=== PATIENT | male | born 1970 | race Hispanic/Latino ===

== ENCOUNTER 2018-06-18 09:38 | Emergency (ER) | payer BC, OTHER ==
[~2018-06-18 09:38] MED LIST: GUAI118S23 PO; IPRA4AER IH; LEVO500T2 PO; LOSA1TAB37 PO; NASONEX NASAL
[2018-06-18 09:57] LABS: BASOPHILS % (AUTO) 0.6 % (0.0-5.0); EOSINOPHILS % (AUTO) 1.2 % (0.0-8.0); HEMATOCRIT 48.8 % (42-54); LYMPHOCYTES % (AUTO) 8.4 % (21.0-51.0); MEAN CORPUSCULAR HEMOGLOBIN 28.8 pg (27.0-33.0); MEAN CORPUSCULAR HGB CONC 33.7 g/dL (32.0-36.0); MEAN CORPUSCULAR VOLUME 85.5 fL (79-99); MONOCYTES % (AUTO) 6.5 % (3.0-13.0); NEUTROPHILS % (AUTO) 83.3 % (40.0-77.0); PLATELET COUNT (AUTO) 239 K/uL (130-400); RED CELL DISTRIBUTION WIDTH 14.1 % (11.0-15.5); WHITE BLOOD COUNT (AUTO) 12.8 K/uL (4.8-10.8)
[2018-06-18 10:02] LABS: POTASSIUM 3.8 mmol/L (3.5-5.1)
[2018-06-18] MEDS ORDERED: SODIUM CHLORIDE 0.9% 1000ML 1,000 ML IV ONE (10:06)
[2018-06-18] MEDS ORDERED: ONDANSETRON HCL 4 MG/2 ML VIAL ONE (10:06)
[2018-06-18] MEDS ORDERED: MORPHINE SULFATE 8 MG/ML VIAL ONE (10:06)
[2018-06-18 10:07] LABS: ALBUMIN 3.5 g/dL (3.5-5.0); BILIRUBIN,TOTAL 0.1 mg/dL (0.2-1.0); TOTAL PROTEIN, SERUM 7.5 g/dL (6.0-8.3)
[2018-06-18 10:20] LABS: APPEARANCE,URINE CLEAR (CLEAR); BILIRUBIN,URINE NEGATIVE (NEGATIVE); COLOR,URINE YELLOW (YELLOW); GLUCOSE, URINE (UA) NEGATIVE (NEGATIVE); KETONES,URINE NEGATIVE (NEGATIVE); LEUKOCYTE ESTERASE ,URINE NEGATIVE (NEGATIVE); NITRATE,URINE NEGATIVE (NEGATIVE); OCCULT BLOOD,URINE MODERATE (NEGATIVE); PH,URINE 6.5 (5.0-8.0); PROTEIN,URINE NEGATIVE (NEGATIVE); UROBILINOGEN,URINE 0.2 mg/dL (0.2-1.0)
[2018-06-18] MEDS ORDERED: IOHEXOL 350 MG/ML 100ML INFUS..BTL IV ONE (10:32)
[2018-06-18 11:07] LABS: RBC,URINE 0-1 /HPF (0-1); WBC,URINE 0-1 /HPF (0-1)
[2018-06-18 11:08] LABS: BACTERIA,URINE Rare /HPF (None Seen); SQUAMOUS EPITHELIAL CELL,UR Rare /HPF (0-2)
== END 2018-06-18 12:32 | disposition home or self-care (01) ==
LOC: EDH 09:38
DX: S16.1XXA Strain of muscle, fascia and tendon at neck level, initial encounter (principal); S09.8XXA Other specified injuries of head, initial encounter; S30.1XXA Contusion of abdominal wall, initial encounter; Z88.1 Allergy status to other antibiotic agents; V49.59XA Passenger injured in collision with other motor vehicles in traffic accident, initial encounter; Y93.89 Activity, other specified; Y92.89 Other specified places as the place of occurrence of the external cause; Y99.8 Other external cause status
CPT/HCPCS: 36415; 70450; 71260; 72125; 74177; 80053; 81001; 83690; 85025; 96374; 96375; 99284; J2270; J2405; J7030; Q9967

== ENCOUNTER 2019-12-24 17:06 | Observation (INO) | payer BC ==
[~2019-12-24] VITALS: Ht 167.6 cm; Wt 118.5 kg
[2019-12-24 17:34] LABS: APPEARANCE,URINE Clear (CLEAR); BILIRUBIN,URINE Negative (NEGATIVE); COLOR,URINE Yellow (YELLOW); GLUCOSE, URINE (UA) Negative (NEGATIVE); KETONES,URINE Negative (NEGATIVE); LEUKOCYTE ESTERASE ,URINE Negative (NEGATIVE); NITRATE,URINE Negative (NEGATIVE); OCCULT BLOOD,URINE Negative (NEGATIVE); PROTEIN,URINE Negative (NEGATIVE)
[2019-12-24 17:39] LABS: AMPHET/METH SCREEN,URINE NEGATIVE (NEGATIVE); BARBITURATE SCREEN, URINE NEGATIVE (NEGATIVE); BENZODIAZEPINES SCREEN,URINE NEGATIVE (NEGATIVE); CANNABINOID SCREEN,URINE NEGATIVE (NEGATIVE); COCAINE SCREEN,URINE NEGATIVE (NEGATIVE); OPIATE SCREEN,URINE NEGATIVE (NEGATIVE); PHENCYCLIDINE SCREEN,URINE NEGATIVE (NEGATIVE)
[2019-12-24 18:00] LABS: BASOPHILS % (AUTO) 0.6 % (0.0-5.0); EOSINOPHILS % (AUTO) 2.5 % (0.0-8.0); HEMATOCRIT 45.5 % (42-54); LYMPHOCYTES % (AUTO) 11.1 % (21.0-51.0); MEAN CORPUSCULAR HEMOGLOBIN 27.8 pg (27.0-33.0); MEAN CORPUSCULAR HGB CONC 33.2 g/dL (32.0-36.0); MEAN CORPUSCULAR VOLUME 83.6 fL (79-99); MONOCYTES % (AUTO) 8.8 % (3.0-13.0); NEUTROPHILS % (AUTO) 76.6 % (40.0-77.0); PLATELET COUNT (AUTO) 264 K/uL (130-400); RED BLOOD CELL COUNT(AUTO) 5.44 MIL/uL (4.50-6.20); RED CELL DISTRIBUTION WIDTH 13.6 % (11.0-15.5)
[2019-12-24 18:22] LABS: POTASSIUM 3.1 mmol/L (3.5-5.1)
[2019-12-24 18:28] LABS: ALBUMIN 3.5 g/dL (3.5-5.0); BILIRUBIN,TOTAL 0.3 mg/dL (0.2-1.0); TOTAL PROTEIN, SERUM 7.3 g/dL (6.0-8.3)
[2019-12-24] MEDS ORDERED: IOHEXOL-350 75 ML VIAL IV ONE (18:28)
[2019-12-24] MEDS ORDERED: FAMOTIDINE/PF 20 MG/2 ML VIAL IV ONE (18:46)
[2019-12-24] MEDS ORDERED: MAGNESIUM HYDROXIDE 30 ML/UDCUP ONE (18:46)
[2019-12-24] MEDS ORDERED: LIDOCAINE HCL 2% VISCOUS 15 ML UDCUP ONE (18:46)
[2019-12-24] MEDS ORDERED: NITROGLYCERIN 1GM/1 INCH PACKET TD ONE (20:45)
[2019-12-24] MEDS ORDERED: POTASSIUM BICARB/CIT AC 25 MEQ TABLET.EFF ONE (20:45)
[2019-12-24] MEDS ORDERED: POTASSIUM CHLORIDE 10MEQ/100ML 100 ML IV PRN (21:00)
[2019-12-24] MEDS: FAMOTIDINE 20MG TAB 20 MG TAB PO SCH (21:00)
[2019-12-24] MEDS ORDERED: NITROGLYCERIN 0.4 MG SL TAB SL PRN (21:00)
[2019-12-24] MEDS ORDERED: ONDANSETRON HCL 4 MG/2 ML VIAL IV PRN (21:00)
[2019-12-24] MEDS ORDERED: LIDOCAINE HCL-MPF 1% 2ML VIAL IV PRN (21:00)
[2019-12-24] MEDS ORDERED: POTASSIUM CHLORIDE 10% ELIXIR 20 MEQ/15 ML UDCUP PO PRN (21:00)
[2019-12-24] MEDS ORDERED: ACETAMINOPHEN 325 MG TAB PO PRN ×2 (21:00)
[2019-12-24] MEDS ORDERED: HYDRALAZINE HCL 20 MG/ML VIAL IV PRN (21:00)
[2019-12-24] MEDS ORDERED: ATORVASTATIN CALCIUM 20 MG TABLET PO SCH (21:00)
[2019-12-24] MEDS ORDERED: POTASSIUM CHLORIDE 20 MEQ ERTAB PO PRN (21:00)
[2019-12-24] MEDS ORDERED: LACTULOSE 20 GM/30 ML UDCUP PO PRN (21:00)
[2019-12-24] MEDS ORDERED: MORPHINE SULFATE 2 MG/ML 1ML SYG IV PRN (21:00)
[2019-12-24 21:24] LABS: THYROID STIMULATING HORMONE 0.89 uIU/mL (0.36-3.74)
[2019-12-24] MEDS: METOPROLOL TARTRATE 25 MG TAB PO SCH (22:56)
[2019-12-24 22:58] VITALS: BP 127/76
[2019-12-24] MEDS ORDERED: LOSA50TA64 PO (23:26)
[2019-12-25 03:16] VITALS: BP 107/60
[2019-12-25 03:32] VITALS: BP 107/60
[2019-12-25 04:32] LABS: BASOPHILS % (AUTO) 0.6 % (0.0-5.0); EOSINOPHILS % (AUTO) 3.1 % (0.0-8.0); HEMATOCRIT 44.8 % (42-54); LYMPHOCYTES % (AUTO) 13.7 % (21.0-51.0); MEAN CORPUSCULAR HEMOGLOBIN 28.2 pg (27.0-33.0); MEAN CORPUSCULAR HGB CONC 33.3 g/dL (32.0-36.0); MEAN CORPUSCULAR VOLUME 84.8 fL (79-99); NEUTROPHILS % (AUTO) 73.2 % (40.0-77.0); PLATELET COUNT (AUTO) 254 K/uL (130-400); RED BLOOD CELL COUNT(AUTO) 5.28 MIL/uL (4.50-6.20); RED CELL DISTRIBUTION WIDTH 13.7 % (11.0-15.5); WHITE BLOOD COUNT (AUTO) 11.8 K/uL (4.8-10.8)
[2019-12-25 04:43] LABS: CREATININE 1.1 mg/dL (0.5-1.5); POTASSIUM 3.6 mmol/L (3.5-5.1)
[2019-12-25] MEDS: INSULIN HUMULIN R 100 UNIT/ML 3ML SQ SCH ×2 (06:37→11:30)
[2019-12-25 07:00] VITALS: BP 112/74
--- NOTE | 2019-12-25 08:00 | NUR ---
PT AAO X 3 REVIEW PLAN OF CARE. PT DENIES ANY CHEST PAIN, TELE MONITOR ON . AND CALL LIGHT IN REACH.
[2019-12-25] MEDS ORDERED: ASPIRIN 325 MG TABLET PO SCH (09:00)
[2019-12-25] MEDS ORDERED: ENOXAPARIN SODIUM 40 MG/0.4 ML SYRINGE SQ SCH (09:00)
[2019-12-25] MEDS: FAMOTIDINE 20MG TAB 20 MG TAB PO SCH (09:26)
[2019-12-25] MEDS: METOPROLOL TARTRATE 25 MG TAB PO SCH (09:27)
[2019-12-25 11:00] VITALS: BP 114/64
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
[2019-12-25] MEDS ORDERED: METO25 PO (14:37)
[2019-12-25] MEDS ORDERED: ACET-2247 PO (14:37)
[2019-12-25] MEDS ORDERED: ASPI-1012 PO (14:37)
[2019-12-25] MEDS ORDERED: Nitroglycerin 0.4MG Sl Tab SL (14:37)
[2019-12-25] MEDS ORDERED: ATOR20TA65 PO (14:37)
[2019-12-25 16:00] VITALS: BP 141/90
--- NOTE | 2019-12-25 18:20 | NUR ---
DISCHARGE SUMMARY WAS REVIEW QUESTIONS . AND MEDICATIONS LISTED FOR B/P AND ASA. AND FOLLOWUP WITH PRIVATE DR. FOR NEEDED CARE AND IF NEEDED CARDIAC CARE . FOR RECOMMANDATON FOLLOWUP SL TO HIS RAC WAS DC ,WITH NO HEMATOMA AND REDNESS . SM PRESSURE DRSG ON AND RT HAND PIV WAS DC , NOTED NO REDNESS OR HEMATOMA A SM DRSG APPLICATION ON
[2019-12-26] MEDS ORDERED: ASPIRIN 81MG TAB.CHEW PO SCH (09:00)
== END 2019-12-25 18:53 | disposition home or self-care (01) ==
LOC: EDH 17:06 → EDHIP 20:52 → 4DH 22:29
PROVIDERS: ADMIT Internal Medicine; ATTEND Internal Medicine
DX: R07.89 Other chest pain (principal); E87.6 Hypokalemia; E11.9 Type 2 diabetes mellitus without complications; E66.01 Morbid (severe) obesity due to excess calories; D72.829 Elevated white blood cell count, unspecified; Z88.1 Allergy status to other antibiotic agents; Z72.0 Tobacco use
CPT/HCPCS: 36415 ×2; 71275; 80048; 80053; 80061; 80305; 81003; 82550; 82948 ×3; 83036; 84443; 84484 ×3; 85025 ×2; 93005 ×3; 96372; 99285; G0378 ×5; J1650; J3490; Q9967

== ENCOUNTER → 2020-01-07 | Outpatient (CLI) | payer BC | END | disposition home or self-care (01) | LOC: SHCH 15:54 | PROVIDERS: ATTEND Internal Medicine Cardiovascular Disease | DX: I10 Essential (primary) hypertension (principal); R00.2 Palpitations; R07.9 Chest pain, unspecified ==

== ENCOUNTER → 2020-01-10 | Outpatient (CLI) | payer BC ==
[~2020-01-10] MED LIST changes: +ACET-2247 PO; +ASPI-1012 PO; +ATOR20TA65 PO; -GUAI118S23 PO; -IPRA4AER IH; -LEVO500T2 PO; -LOSA1TAB37 PO; +LOSA50TA64 PO; +METO25 PO; -NASONEX NASAL; +Nitroglycerin 0.4MG Sl Tab SL; +REGADENOSON 0.4 MG/5 ML PF SYG IVP ONE; +REGADENOSON 0.4 MG/5 ML PF SYG IVP SCH
== END ==
LOC: SHCH 08:00
PROVIDERS: ATTEND Internal Medicine Cardiovascular Disease
DX: I10 Essential (primary) hypertension (principal); R00.2 Palpitations; R07.9 Chest pain, unspecified
CPT/HCPCS: 78452; 93017; 96374; A9500 ×2; J2785

== ENCOUNTER 2024-01-01 10:39 | Emergency (ER) | payer BC, OTHER ==
[~2024-01-01] VITALS: Ht 167.6 cm; Wt 103.0 kg
[~2024-01-01 10:39] MED LIST changes: -ACET-2247 PO; -ASPI-1012 PO; -ATOR20TA65 PO; +LEVO-70 PO; +METF-446 PO; -METO25 PO; -Nitroglycerin 0.4MG Sl Tab SL; -REGADENOSON 0.4 MG/5 ML PF SYG IVP ONE; -REGADENOSON 0.4 MG/5 ML PF SYG IVP SCH; +ROSU5TAB43 PO; +TAMS-1 PO
[2024-01-01 11:20] LABS: BASOPHILS # (AUTO) 0.07 K/uL (0.00-0.20); BASOPHILS % (AUTO) 0.7 % (0.0-5.0); EOSINOPHILS # (AUTO) 0.13 K/uL (0.00-0.70); EOSINOPHILS % (AUTO) 1.3 % (0.0-8.0); IMMATURE GRANULOCYTE ABSOLUTE 0.09 K/uL (0-1); LYMPHOCYTES # (AUTO) 1.4 K/uL (1.0-4.8); LYMPHOCYTES % (AUTO) 14.9 % (21.0-51.0); MEAN CORPUSCULAR HEMOGLOBIN 28.4 pg (27.0-33.0); MEAN CORPUSCULAR HGB CONC 34.3 g/dL (32.0-36.0); MEAN CORPUSCULAR VOLUME 82.7 fL (79-99); MONOCYTES # (AUTO) 0.5 K/uL (0.1-1.0); MONOCYTES % (AUTO) 5.3 % (3.0-13.0); NEUTROPHILS # (AUTO) 7.4 K/uL (1.8-7.7); NEUTROPHILS % (AUTO) 76.9 % (40.0-77.0); PLATELET COUNT (AUTO) 233 K/uL (130-400); RED BLOOD CELL COUNT(AUTO) 5.56 MIL/uL (4.50-6.20); RED CELL DISTRIBUTION WIDTH 13.2 % (11.0-15.5); WHITE BLOOD COUNT (AUTO) 9.6 K/uL (4.8-10.8)
[2024-01-01 11:32] LABS: ALBUMIN 3.4 g/dL (3.5-5.0); BILIRUBIN,TOTAL 0.6 mg/dL (0.2-1.0); CREATININE 1.2 mg/dL (0.5-1.3); POTASSIUM 3.8 mmol/L (3.5-5.1); TOTAL PROTEIN, SERUM 6.8 g/dL (6.0-8.3)
[2024-01-01 12:16] LABS: ABG BASE EXCESS -2.9 mmol/L (-2.0-3.0); ABG HCO3 20.8 mmol/L (21.0-28.0); ABG OXYGEN SATURATION 96.4 % (95.0-99.0); ABG PCO2 33 mmHg (35-48); ABG PH 7.413 (7.35-7.450); PO2, ARTERIAL BG 83.2 mmHg (83.0-108.0); VENT MODE, BG RA (ROOM AIR)
[2024-01-01] MEDS: INSULIN HUMULIN R 100 UNIT/ML 3ML IV ONE (12:43)
[2024-01-01] MEDS: 0.9%NACL 1000ML 1,000 ML IV SCH (12:44)
[2024-01-01 13:29] LABS: ADD UA MICROSCOPIC YES; APPEARANCE,URINE CLEAR (CLEAR); BILIRUBIN,URINE NEGATIVE (NEGATIVE); COLOR,URINE LIGHT-YELLOW (YELLOW); GLUCOSE, URINE (UA) >=1000 mg/dL (NEGATIVE); KETONES,URINE NEGATIVE (NEGATIVE); LEUKOCYTE ESTERASE ,URINE NEGATIVE Leu/uL (NEGATIVE); NITRATE,URINE NEGATIVE (NEGATIVE); OCCULT BLOOD,URINE NEGATIVE (NEGATIVE); PH,URINE 5.5 (5.0-8.0); PROTEIN,URINE NEGATIVE (NEGATIVE); UROBILINOGEN,URINE 0.2 mg/dL (0.2-1.0)
[2024-01-01 13:30] LABS: OTHER CASTS, URINE 2 /LPF (None Seen)
[2024-01-01] MEDS: 0.9%NACL 1000ML 1,000 ML IV ONE (15:27)
[2024-01-01 16:23] VITALS: BP 134/90; PULSE 71; RESP 18; O2SAT 96
== END 2024-01-01 16:28 | disposition home or self-care (01) ==
LOC: EDH 10:39
DX: E11.65 Type 2 diabetes mellitus with hyperglycemia (principal); I10 Essential (primary) hypertension
CPT/HCPCS: 99284; 96374; 71045; 96361; 80053; 82803; 85025; 87040 ×2; 82948; 83605 ×2; 82010; 81001; 36415; 93005; 36600; J1815; J7030 ×2

== ENCOUNTER 2024-12-24 08:34 | Emergency (ER) | payer BC, OTHER ==
[~2024-12-24] VITALS: Ht 167.6 cm; Wt 113.4 kg
[~2024-12-24 08:34] MED LIST changes: -ROSU5TAB43 PO; +ROSU5TAB51 PO; -TAMS-1 PO; +TAMS-55 PO
--- NOTE | 2024-12-24 08:57 | ERN ---
General Chief Complaint: Weakness Stated Complaint: BLOOD PRESSURE FLUCTUATIONS Time Seen by MD: 08:38 History of Present Illness Initial Comments 54-year-old male history of hypertension diabetes presents for extreme weakness and tiredness over the last two or three days. Patient reports feeling dizzy and a bit dyspneic at time. No chest pain or pressure. No fevers. No sore throat. He has reports a very mild cough. He reports he has been swelling in his legs on and off recently but it waxing and wanes. No vomiting diarrhea. P.o. tolerant. No abdominal pain. Patient reports that he thinks it may be his blood pressure, it has been ranging from 160 systolic to 120s systolic for blood pressure monitoring home. Allergies: Coded Allergies: sulfamethoxazole (Unverified Allergy, Unknown, RASH, 09/03/14) trimethoprim (Unverified Allergy, Unknown, RASH, 09/03/14) Home Meds Active Scripts Levofloxacin (Levofloxacin) 500 Mg Tablet, 500 MG PO DAILY for 7 Days, #7 TAB Prov:GABY HEATH NP 02/28/23 Tamsulosin HCl (Flomax) 0.4 Mg Cap.er.24h, 0.4 MG PO DAILY for 7 Days, #7 CAPS [address]LE.DR Prov:GABY HEATH NP 02/28/23 Reported Medications Rosuvastatin Calcium (Rosuvastatin Calcium) 5 Mg Tablet, 5 MG PO HS, TAB 02/26/23 Metformin HCl (Metformin HCl) 1,000 Mg Tablet, 1000 MG PO BID, TAB 02/26/23 Losartan Potassium (Losartan Potassium) 50 Mg Tablet, 50 MG PO AM, TAB 12/24/19 Past Medical History Past Medical History: Diabetes-Type II, High Cholesterol, Hypertension Past Surgical History: None Surgical History Other: NASAL, Social History Social History: Negative, Lives with family ROS Dictation CONSTITUTIONAL: Fatigue generalized weakness HEAD/FACE: No signs of trauma. EENT: No eye pain, no blurred vision, no tearing, no double vision, no ear pain, no ear discharge, no nose pain, no nasal congestion, no throat pain, no throat swelling, no mouth pain. RESPIRATORY: No cough, no orthopnea, no SOB, no stridor, no wheezing. CARDIOVASCULAR: No chest pain, no edema, no palpitations, no syncope. GASTROINTESTINAL/ABDOMINAL: No abdominal pain, no constipation, no diarrhea, no nausea, no vomiting. GENITOURINARY: No abnormal discharge, no dysuria, no frequent urination, no hematuria. No complaints of pain in the genitals. MUSCULOSKELETAL: No back pain, no gout, no joint pain, no joint swelling, no muscle pain, no muscle stiffness, no neck pain. INTEGUMENTARY: No change in color, no change in hair/nails, no dryness, no lesion, no lumps, no rash. NEUROLOGICAL/PSYCH: No anxiety, not depressed, no emotional problem, no headache, no numbness, no pre-existing deficit, no history of seizures, no tremors, no weakness. HEMATOLOGIC/LYMPHATIC: Not anemic, no history of blood clots, no apparent bleeding, no bruising, glands not swollen. All Systems Negative, Except as Noted. Physical Exam Physical Exam Dictation VITAL SIGNS: Reviewed. GENERAL APPEARANCE: Alert, oriented x3, no acute distress, obese. HEAD AND FACE: Non-traumatic. EYES: PERRL, pink conjunctivas, eyelid no trauma, anterior chamber clear. EARS: Pinnas intact and no signs of trauma or erythema. Ear canals clear and no discharge. TMs no erythema. NOSE: No discharge, no bleeding. OROPHARYNX: Dry mucous membranes NECK: Supple, non-tender, no thyromegaly, no masses, no JVD, no bruits. BREAST: Deferred. CHEST: No tenderness, no crepitus, no paradoxical movement, no retractions. LUNGS: Clear, well-ventilated, symmetric, no rales, no wheezing, no rhonchi, no stridor, good breath sounds bilaterally. HEART: Regular rate, regular rhythm, no murmur, no gallops. VASCULAR: No peripheral edema. ABDOMEN: Soft, positive bowel sounds, nondistended, no guarding, nontender, no rebound, no masses no hepatomegaly, no splenomegaly, no Steele's sign, no hernias. RECTAL: Deferred. GENITAL: Deferred. NEUROLOGICAL: Normal speech, gross motor function intact, gross sensory function intact. MUSCULOSKELETAL: Neck nontender, full range of motion, back nontender, full range of motion. EXTREMITIES: Nontender, full range of motion. SKIN: Color pink, dry, no turgor, no rash, no lacerations, no abrasions, no contusions. LYMPHATICS: Deferred. Results Laboratory and Microbiology Lab and Micro Result Laboratory Tests Test 12/24/24 08:59 12/24/24 09:00 12/24/24 10:19 Urine Color LIGHT-YELLOW (YELLOW) Urine Appearance CLEAR (CLEAR) Urine pH 6.0 (5.0-8.0) Urine Specific [place] 1.027 (1.001-1.031) Urine Protein 20 mg/dL (NEGATIVE) H Urine Glucose (UA) >=1000 mg/dL (NEGATIVE) H Urine Ketones 5 mg/dL (NEGATIVE) H Urine Occult Blood +- (TRACE) (NEGATIVE) H Urine Nitrate NEGATIVE (NEGATIVE) Urine Bilirubin NEGATIVE mg/dL (NEGATIVE) Urine Urobilinogen 0.2 mg/dL (0.2-1.0) Urine Leukocyte Esterase NEGATIVE Leslie/uL Urine RBC 2-5 /HPF (0-1) H Urine WBC 2-5 /HPF (0-1) H Urine Bacteria None /HPF (None Seen) White Blood Count 9.3 K/uL (4.8-10.8) Red Blood Count 5.56 MIL/uL (4.50-6.20) Hemoglobin 16.0 g/dL (14.0-18.0) Hematocrit 47.3 % (42-54) Mean Corpuscular Volume 85.1 fL (79-99) Mean Corpuscular Hemoglobin 28.8 pg (27.0-33.0) Mean Corpuscular Hemoglobin Concent 33.8 g/dL (32.0-36.0) Red Cell Distribution Width 13.5 % (11.0-15.5) Platelet Count 242 K/uL (130-400) Mean Platelet Volume 10.7 fL (7.5-10.5) H Immature Granulocyte % (Auto) 0.5 % (0-1) Neutrophils (%) (Auto) 76.3 % (40.0-77.0) Lymphocytes (%) (Auto) 14.1 % (21.0-51.0) L Monocytes (%) (Auto) 6.1 % (3.0-13.0) Eosinophils (%) (Auto) 2.2 % (0.0-8.0) Basophils (%) (Auto) 0.8 % (0.0-5.0) Neutrophils # (Auto) 7.1 K/uL (1.8-7.7) Lymphocytes # (Auto) 1.3 K/uL (1.0-4.8) Monocytes # (Auto) 0.6 K/uL (0.1-1.0) Eosinophils # (Auto) 0.20 K/uL (0.00-0.70) Basophils # (Auto) 0.07 K/uL (0.00-0.20) Absolute Immature Granulocyte (auto 0.05 K/uL (0-1) Nucleated Red Blood Cells 0.0 % (0.0-0.19) Sodium Level 142 mmol/L (136-145) Potassium Level 4.0 mmol/L (3.5-5.1) Chloride Level 106 mmol/L (101-111) Carbon Dioxide Level 27 mmol/L (21-32) Blood Urea Nitrogen 18 mg/dL (7-18) Creatinine 0.9 mg/dL (0.5-1.3) Glomerular Filtration Rate Calc 101 mL/min (>90) Random Glucose 259 mg/dL (70-105) H Lactic Acid Level 2.5 mmol/L (0.8-2.5) Total Calcium 8.7 mg/dL (8.5-10.1) Total Creatine Kinase 144 U/L (21-232) # Troponin I High Sensitivity 11 ng/L (4-75) 10 ng/L (4-75) B-Type Natriuretic Peptide 5 pg/mL (0-100) Thyroid Stimulating Hormone (TSH) 1.24 uIU/mL (0.36-3.74) # MDM CC: Generalized fatigue and weakness Historian: Patient Comorbidities: Diabetes, hypertension Limitations by social determinants of health: None Differential diagnosis: Dehydration, electrolyte abnormality, hyperglycemia, infection, other. Vital signs are stable, mild hypertension Clinical exam is unremarkable EKG shows a normal sinus rhythm with a rate 85 with a normal axis, good R-wave progression, no STEMI. Independently interpreted by me. Labs (independently ordered and interpreted by me): No leukocytosis or anemia. Chemistry panel is normal. Lactic acid is normal. CK normal. Troponin x2 normal. BNP and TSH are normal. Glucose elevated to 59 no signs of DKA or HHNK. Urinalysis shows glucose, high specific gravity, ketones, but no other signs of infections or major abnormalities. Patient received IV fluids here in the ER. Symptoms most consistent with dehydration, hyperglycemia. No life threats at this time. We will DC to PCP follow up. ED Course Orders Procedure Category Date Status Time Cardiac Panel LAB 12/24/24 Complete 08:40 Cbc With Differential LAB 12/24/24 Complete 08:40 Basic Metabolic Panel LAB 12/24/24 Complete 08:40 Urinalysis Profile LAB 12/24/24 Complete 08:40 Lactated Ringers PHA 12/24/24 Complete 1000ml (Lactated 09:00 B-Type Natriuretic LAB 12/24/24 Complete Peptide 08:40 Chest 1vw RAD 12/24/24 Resulted 08:40 12 Lead Ekg Tracing- EKG 12/24/24 Complete Technical 08:40 Creatine Kinase, Total LAB 12/24/24 Complete 08:40 Troponin I High LAB 12/24/24 Complete Sensitivity 08:40 Lactic Acid LAB 12/24/24 Complete 08:40 Thyroid Stimulating LAB 12/24/24 Complete Hormone 08:55 Troponin I High LAB 12/24/24 Complete Sensitivity 10:11 Current Medications Medications (Trade) Dose Ordered Sig/Keira Route PRN Reason Start Time Stop Time Status Last Admin Dose Admin Lactated Ringer's 1,000 ml @ 0 mls/hr ONCE ONCE IV 12/24/24 09:00 12/24/24 09:01 DC 12/24/24 09:04 Vital Signs Date Time Temp Pulse Resp B/P (MAP) Pulse Ox O2 Delivery O2 Flow Rate FiO2 12/24/24 11:18 98.1 80 16 145/77 Room Air* 0 21 12/24/24 10:00 98.4 80 16 145/77 96 Room Air* 0 21 12/24/24 08:40 80 15 156/92 99 Room Air* 0 21 12/24/24 08:35 98.4 82 22 167/93 Room Air 0 DX & DISP Disposition: Discharge Departure Impression: Primary Impression: Hyperglycemia Additional Impressions: Hypertension, Dehydration Condition: Stable Additional Instructions: Your symptoms are consistent with dehydration an elevated blood sugar levels. Your blood pressure has been mildly elevated here in the ER, but not at a dangerous range. Please continue with your home blood pressure medications. You may need to follow up with your primary doctor regarding your blood pressure. Your EKG is normal. Your blood work (CBC with differential, BMP, lactic acid, troponin x2, TSH, CK) shows a blood glucose of 265. Otherwise her blood work is unremarkable. The urinalysis shows signs of dehydration. You received IV fluids here in the ER. I recommend drinking plenty of liquids. Continue taking your blood pressure and blood glucose medications. Please follow up with the primary doctor if you continue with symptoms. Referrals: CHARITO SON (PCP) WYATT MISHRA DO December 24, 2024 08:57
[2024-12-24] MEDS: LACTATED RINGERS 1000ML 1,000 ML IV ONE (09:04)
[2024-12-24 09:08] LABS: BASOPHILS # (AUTO) 0.07 K/uL (0.00-0.20); BASOPHILS % (AUTO) 0.8 % (0.0-5.0); EOSINOPHILS % (AUTO) 2.2 % (0.0-8.0); HEMATOCRIT 47.3 % (42-54); IMMATURE GRANULOCYTE ABSOLUTE 0.05 K/uL (0-1); LYMPHOCYTES # (AUTO) 1.3 K/uL (1.0-4.8); LYMPHOCYTES % (AUTO) 14.1 % (21.0-51.0); MEAN CORPUSCULAR HEMOGLOBIN 28.8 pg (27.0-33.0); MEAN CORPUSCULAR HGB CONC 33.8 g/dL (32.0-36.0); MEAN CORPUSCULAR VOLUME 85.1 fL (79-99); MONOCYTES # (AUTO) 0.6 K/uL (0.1-1.0); MONOCYTES % (AUTO) 6.1 % (3.0-13.0); NEUTROPHILS # (AUTO) 7.1 K/uL (1.8-7.7); NEUTROPHILS % (AUTO) 76.3 % (40.0-77.0); PLATELET COUNT (AUTO) 242 K/uL (130-400); RED BLOOD CELL COUNT(AUTO) 5.56 MIL/uL (4.50-6.20); RED CELL DISTRIBUTION WIDTH 13.5 % (11.0-15.5); WHITE BLOOD COUNT (AUTO) 9.3 K/uL (4.8-10.8)
[2024-12-24 09:26] LABS: APPEARANCE,URINE CLEAR (CLEAR); BILIRUBIN,URINE NEGATIVE (NEGATIVE); COLOR,URINE LIGHT-YELLOW (YELLOW); GLUCOSE, URINE (UA) >=1000 mg/dL (NEGATIVE); KETONES,URINE 5 mg/dL (NEGATIVE); LEUKOCYTE ESTERASE ,URINE NEGATIVE Leu/uL (NEGATIVE); NITRATE,URINE NEGATIVE (NEGATIVE); PROTEIN,URINE 20 mg/dL (NEGATIVE); UROBILINOGEN,URINE 0.2 mg/dL (0.2-1.0)
--- NOTE | 2024-12-24 09:26 | EKG ---
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
[2024-12-24 09:29] LABS: ADD UA MICROSCOPIC YES
--- NOTE | 2024-12-24 09:31 | HMCIMG ---
Exam Type: CHEST 1VW Clinical Information: congestion Comparison: None Findings: The lungs are clear of infiltrates. The heart is normal in size. The bony and soft tissue structures of the chest are unremarkable. Impression: Clear lungs.
[2024-12-24 09:36] LABS: CREATININE 0.9 mg/dL (0.5-1.3)
[2024-12-24 09:41] LABS: B-TYPE NATRIURETIC PEPTIDE 5 pg/mL (0-100)
[2024-12-24 10:00] VITALS: O2SAT 96
[2024-12-24 11:18] VITALS: BP 145/77; PULSE 80; RESP 16; TEMP 98
== END 2024-12-24 11:21 | disposition home or self-care (01) ==
LOC: EDH 08:34
DX: E11.65 Type 2 diabetes mellitus with hyperglycemia (principal); I10 Essential (primary) hypertension; E86.0 Dehydration; E78.00 Pure hypercholesterolemia, unspecified; Z79.84 Long term (current) use of oral hypoglycemic drugs; Z88.1 Allergy status to other antibiotic agents; Z88.2 Allergy status to sulfonamides
CPT/HCPCS: 99284; 96360; 71045; 84443; 82550; 84484 ×3; 80048; 83880; 85025; 83605; 81001; 36415; 93005; J7120